=== PATIENT | male | born 1960 | race Native Hawaiian/Other Pacific Islander ===

== ENCOUNTER 2022-10-29 16:14 | Emergency (ER) | payer OTHER ==
[~2022-10-29] VITALS: Ht 165.1 cm; Wt 56.2 kg
[2022-10-29 16:24] VITALS: BP 105/53; TEMP 97.5
[2022-10-29 16:55] LABS: PLATELET COUNT 270 K/uL (142-355)
[2022-10-29 16:57] LABS: POTASSIUM 3.8 mmol/L (3.6-5.2)
[2022-10-29] MEDS ORDERED: OLMESARTAN MEDO20 MG PO (18:31)
[2022-10-29] MEDS ORDERED: PARO20TA3 PO (18:32)
[2022-10-29] MEDS ORDERED: LEVE500T5 PO (18:32)
[2022-10-29] MEDS ORDERED: ACET-689 PO (18:33)
[2022-10-29] MEDS ORDERED: LIPITOR40 MG PO (18:33)
[2022-10-29] MEDS ORDERED: DONE5TAB PO (18:34)
[2022-11-05] MEDS ORDERED: CEFD300C2 PO ×2 (11:24→11:32)
[2022-11-05] MEDS ORDERED: Atorvastatin Calcium PO (11:24)
[2022-11-05] MEDS ORDERED: LEVE500T5 PO (11:25)
== END 2022-10-29 17:42 | disposition other institution (70) ==
LOC: ED 16:14
PROVIDERS: Family Medicine
DX: Z04.6 Encounter for general psychiatric examination, requested by authority (principal); G20 Parkinson's disease; F02.811 Dementia in other diseases classified elsewhere, unspecified severity, with agitation; R53.81 Other malaise; I10 Essential (primary) hypertension; E78.00 Pure hypercholesterolemia, unspecified; Z20.822 Contact with and (suspected) exposure to COVID-19
CPT/HCPCS: 80053; 81000; 85027; 87077; 87086; 87088; 87186; 87635; 93005; 99283; U0003